=== PATIENT | female | born 1940 | race Caucasian/White ===

== ENCOUNTER → 2018-05-14 10:43 | Outpatient (CLI) | payer OTHER, SELFPAY ==
[2018-05-14 12:42] LABS: Alanine Aminotransferase 43 IU/L (9-52); Albumin 4.1 g/dL (3.5-5.0); Albumin Globulin Ratio 1.2 (1.0-2.8); Alkaline Phosphatase 103 U/L (38-126); Aspartate Aminotransferase 39 IU/L (14-36); BUN Creatinine Ratio 17.8 (6-22); Bilirubin Total 0.8 mg/dL (0.2-1.3); Blood Urea Nitrogen 16 mg/dL (7-17); Calcium 9.5 mg/dL (8.4-10.2); Carbon Dioxide 32 mmol/L (22-32); Chloride 103 mmol/L (98-107); Cholesterol 116 mg/dL (140-199); Estimated Glomerular Filt Rate > 60.0 mL/min (>60); Globulin 3.3 g/dL (1.7-4.1); Glucose 101 mg/dL (80-110); HDL Cholesterol 49 mg/dL (40-60); HEMOLYSIS < 15 (0-50); LDL Cholesterol Calculated 54 mg/dL (<100); Sodium 142 mmol/L (137-145); Total Protein 7.4 g/dL (6.3-8.2); Triglycerides 67 mg/dL (35-150)
== END ==
PROVIDERS: Family Provider Family Medicine; PCP Family Medicine; Visit Provider Internal Medicine Cardiovascular Disease
DX: I25.5 Ischemic cardiomyopathy (principal); I47.2 Ventricular tachycardia; I10 Essential (primary) hypertension; E78.00 Pure hypercholesterolemia, unspecified; Z95.810 Presence of automatic (implantable) cardiac defibrillator
CPT/HCPCS: 36415; 80053; 80061

== ENCOUNTER → 2019-05-06 10:28 | Outpatient (CLI) | payer OTHER, SELFPAY ==
[2019-05-06 12:06] LABS: Alanine Aminotransferase 31 IU/L (9-52); Albumin 4.1 g/dL (3.5-5.0); Albumin Globulin Ratio 1.2 (1.0-2.8); Alkaline Phosphatase 109 U/L (38-126); Aspartate Aminotransferase 33 IU/L (14-36); Bilirubin Total 0.9 mg/dL (0.2-1.3); Blood Urea Nitrogen 18 mg/dL (7-17); Calcium 9.7 mg/dL (8.4-10.2); Carbon Dioxide 32 mmol/L (22-32); Chloride 103 mmol/L (98-107); Cholesterol 122 mg/dL (140-199); Estimated Glomerular Filt Rate > 60.0 mL/min (>60); Globulin 3.3 g/dL (1.7-4.1); Glucose 105 mg/dL (80-110); HDL Cholesterol 55 mg/dL (40-60); HEMOLYSIS < 15 (0-50); LDL Cholesterol Calculated 50 mg/dL (<100); Potassium 5.1 mmol/L (3.4-5.1); Sodium 140 mmol/L (137-145); Total Protein 7.4 g/dL (6.3-8.2); Triglycerides 87 mg/dL (35-150)
== END ==
PROVIDERS: Family Provider Student in an Organized Health Care Education/Training Program; PCP Student in an Organized Health Care Education/Training Program; Visit Provider Internal Medicine Cardiovascular Disease
DX: I25.10 Atherosclerotic heart disease of native coronary artery without angina pectoris (principal); I25.5 Ischemic cardiomyopathy; I47.2 Ventricular tachycardia; I34.0 Nonrheumatic mitral (valve) insufficiency; Z95.810 Presence of automatic (implantable) cardiac defibrillator; Z86.79 Personal history of other diseases of the circulatory system
CPT/HCPCS: 36415; 80053; 80061

== ENCOUNTER → 2019-12-09 09:27 | Outpatient (CLI) | payer MEDICARE, OTHER, SELFPAY | PROVIDERS: Family Provider Student in an Organized Health Care Education/Training Program; PCP Student in an Organized Health Care Education/Training Program; Referring Provider Student in an Organized Health Care Education/Training Program; Visit Provider Student in an Organized Health Care Education/Training Program | DX: M85.852 Other specified disorders of bone density and structure, left thigh (principal); Z78.0 Asymptomatic menopausal state; E07.9 Disorder of thyroid, unspecified; Z91.89 Other specified personal risk factors, not elsewhere classified | CPT/HCPCS: 77080 ==

== ENCOUNTER → 2020-05-31 11:59 | Outpatient (CLI) | payer MEDICARE, OTHER, SELFPAY ==
[2020-05-31 16:31] LABS: Alanine Aminotransferase 24 IU/L (<35); Albumin Globulin Ratio 1.2 (1.0-2.8); Alkaline Phosphatase 114 U/L (38-126); Aspartate Aminotransferase 32 IU/L (14-36); BUN Creatinine Ratio 17.7 (6-22); Bilirubin Total 0.9 mg/dL (0.2-1.3); Blood Urea Nitrogen 17 mg/dL (7-17); Calcium 9.6 mg/dL (8.4-10.2); Carbon Dioxide 27 mmol/L (22-32); Chloride 106 mmol/L (98-107); Cholesterol 115 mg/dL (140-199); Estimated Glomerular Filt Rate 55.8 mL/min (>60); Globulin 3.3 g/dL (1.7-4.1); Glucose 95 mg/dL (80-110); HDL Cholesterol 52 mg/dL (40-60); HEMOLYSIS < 15 (0-50); LDL Cholesterol Calculated 45 mg/dL (<100); Potassium 4.9 mmol/L (3.4-5.1); Sodium 139 mmol/L (137-145); Total Protein 7.3 g/dL (6.3-8.2); Triglycerides 92 mg/dL (35-150)
== END ==
PROVIDERS: Family Provider Student in an Organized Health Care Education/Training Program; PCP Student in an Organized Health Care Education/Training Program; Referring Provider Internal Medicine Cardiovascular Disease; Visit Provider Internal Medicine Cardiovascular Disease
DX: I25.10 Atherosclerotic heart disease of native coronary artery without angina pectoris (principal); I25.5 Ischemic cardiomyopathy
CPT/HCPCS: 36415; 80053; 80061

== ENCOUNTER → 2021-02-21 14:08 | Outpatient (CLI) | payer MEDICARE, OTHER, SELFPAY ==
[2021-02-21 16:08] LABS: BUN Creatinine Ratio 23.3 (6-22); Blood Urea Nitrogen 20 mg/dL (7-17); Carbon Dioxide 28 mmol/L (22-32); Chloride 106 mmol/L (98-107); Estimated Glomerular Filt Rate > 60.0 mL/min (>60); Glucose 106 mg/dL (80-110); HEMOLYSIS < 15 (0-50); Potassium 5.1 mmol/L (3.4-5.1); Sodium 141 mmol/L (137-145)
[2021-02-21 17:23] LABS: TSH w/ Reflex to FT4 3.11 uIU/mL (0.47-4.68)
== END ==
PROVIDERS: Family Provider Student in an Organized Health Care Education/Training Program; PCP Student in an Organized Health Care Education/Training Program; Referring Provider Student in an Organized Health Care Education/Training Program; Visit Provider Student in an Organized Health Care Education/Training Program
DX: I10 Essential (primary) hypertension (principal); E03.9 Hypothyroidism, unspecified
CPT/HCPCS: 36415; 80048; 84443

== ENCOUNTER → 2021-05-23 10:44 | Outpatient (CLI) | payer MEDICARE, OTHER, SELFPAY ==
[2021-05-23 12:56] LABS: Alanine Aminotransferase 25 IU/L (<35); Albumin Globulin Ratio 1.2 (1.0-2.8); Alkaline Phosphatase 113 U/L (38-126); Aspartate Aminotransferase 34 IU/L (14-36); BUN Creatinine Ratio 19.8 (6-22); Bilirubin Total 0.7 mg/dL (0.2-1.3); Blood Urea Nitrogen 19 mg/dL (7-17); Calcium 10.1 mg/dL (8.4-10.2); Carbon Dioxide 30 mmol/L (22-32); Chloride 105 mmol/L (98-107); Estimated Glomerular Filt Rate 55.6 mL/min (>60); Globulin 3.3 g/dL (1.7-4.1); Glucose 103 mg/dL (80-110); HEMOLYSIS < 15 (0-50); Potassium 4.8 mmol/L (3.4-5.1); Sodium 141 mmol/L (137-145); Total Protein 7.3 g/dL (6.3-8.2)
== END ==
PROVIDERS: Family Provider Student in an Organized Health Care Education/Training Program; PCP Student in an Organized Health Care Education/Training Program; Referring Provider Internal Medicine Cardiovascular Disease; Visit Provider Internal Medicine Cardiovascular Disease
DX: I25.10 Atherosclerotic heart disease of native coronary artery without angina pectoris (principal)
CPT/HCPCS: 36415; 80053

== ENCOUNTER → 2022-07-02 10:00 | Outpatient (CLI) | payer MEDICARE, OTHER, SELFPAY ==
[2022-07-02 11:26] LABS: Alanine Aminotransferase 20 IU/L (<35); Albumin 4.1 g/dL (3.5-5.0); Albumin Globulin Ratio 1.2 (1.0-2.8); Alkaline Phosphatase 123 U/L (38-126); Aspartate Aminotransferase 29 IU/L (14-36); BUN Creatinine Ratio 21.3 (6-22); Bilirubin Total 0.6 mg/dL (0.2-1.3); Blood Urea Nitrogen 20 mg/dL (7-17); Calcium 9.5 mg/dL (8.4-10.2); Carbon Dioxide 26 mmol/L (22-32); Chloride 105 mmol/L (98-107); Cholesterol 124 mg/dL (140-199); Estimated Glomerular Filt Rate > 60 mL/min (>60); Globulin 3.4 g/dL (1.7-4.1); Glucose 103 mg/dL (80-110); HDL Cholesterol 48 mg/dL (40-60); HEMOLYSIS < 15 (0-50); LDL Cholesterol Calculated 49 mg/dL (<100); Potassium 4.7 mmol/L (3.4-5.1); Sodium 141 mmol/L (137-145); Total Protein 7.5 g/dL (6.3-8.2); Triglycerides 137 mg/dL (35-150)
[2022-07-02 11:47] LABS: Thyroid Stimulating Hormone 4.57 uIU/mL (0.47-4.68)
== END ==
PROVIDERS: Family Provider Student in an Organized Health Care Education/Training Program; PCP Student in an Organized Health Care Education/Training Program; Referring Provider Internal Medicine Cardiovascular Disease; Visit Provider Internal Medicine Cardiovascular Disease
DX: E78.5 Hyperlipidemia, unspecified (principal); E03.9 Hypothyroidism, unspecified
CPT/HCPCS: 36415; 80053; 80061; 84443

== ENCOUNTER → 2022-11-04 12:35 | Outpatient (CLI) | payer MEDICARE, OTHER, SELFPAY ==
[2022-11-04 13:21] LABS: Add Manual Diff / Slide Review NO; Basophils Absolute Auto 0 /uL (0-100); Basophils Percent Auto 0.3 % (0-2); Eosinophils Absolute Auto 0 /uL (0-450); Eosinophils Percent Auto 0.5 % (2-4); Hematocrit 33.3 % (36-46); Hemoglobin 10.8 g/dL (12.0-16.0); Lymphocytes Absolute Auto 1400 /uL (1100-4500); Lymphocytes Percent Auto 13.2 % (25-40); Mean Corpuscular HGB Conc 32.5 % (30-36); Mean Corpuscular Hemoglobin 26.6 PG (26-34); Mean Corpuscular Volume 81.9 fL (80-100); Monocytes Absolute Auto 1100 /uL (0-900); Monocytes Percent Auto 10.8 % (3-14); Neutrophils Absolute Auto 7700 /uL (1500-7000); Neutrophils Percent Auto 75.2 % (50-75); Platelet Count 372 X10^3/uL (150-400); Red Blood Cell Count 4.07 X10^6/uL (4.0-5.2); Red Cell Distribution Width 14.8 % (11.6-14.8); White Blood Cell Count 10.3 X10^3/uL (4.5-11.0)
[2022-11-04 13:42] LABS: HEMOLYSIS < 15 (0-50); Iron 28 ug/dL (37-170)
[2022-11-04 13:53] LABS: Percent Iron Saturation 13 % (15-50); Total Iron Binding Capacity 223 ug/dL (265-497)
[2022-11-04 13:59] LABS: Transferrin 165 mg/dL (206-381)
[2022-11-04 14:13] LABS: Thyroid Stimulating Hormone 4.17 uIU/mL (0.47-4.68)
[2022-11-04 14:17] LABS: Ferritin 240 ng/mL (11-264)
[2022-11-04 14:48] LABS: Folate 6.9 ng/mL (2.76-20.0); Vitamin B12 489 pg/mL (239-931)
== END ==
PROVIDERS: Family Provider Student in an Organized Health Care Education/Training Program; PCP Student in an Organized Health Care Education/Training Program; Referring Provider Physician Assistant Medical; Visit Provider Physician Assistant Medical
DX: D64.9 Anemia, unspecified (principal); E03.9 Hypothyroidism, unspecified; I50.9 Heart failure, unspecified
CPT/HCPCS: 36415; 82607; 82728; 82746; 83540; 83550; 84443; 85025

== ENCOUNTER → 2023-01-20 11:26 | Outpatient (CLI) | payer MEDICARE, OTHER, SELFPAY ==
[2023-01-20 12:52] LABS: Add Manual Diff / Slide Review NO; Basophils Absolute Auto 0 /uL (0-100); Basophils Percent Auto 0.2 % (0-2); Eosinophils Absolute Auto 100 /uL (0-450); Eosinophils Percent Auto 1.2 % (2-4); Hematocrit 32.4 % (36-46); Hemoglobin 10.6 g/dL (12.0-16.0); Lymphocytes Absolute Auto 1400 /uL (1100-4500); Lymphocytes Percent Auto 16.6 % (25-40); Mean Corpuscular HGB Conc 32.6 % (30-36); Mean Corpuscular Hemoglobin 26.4 PG (26-34); Mean Corpuscular Volume 80.9 fL (80-100); Monocytes Absolute Auto 800 /uL (0-900); Monocytes Percent Auto 9.3 % (3-14); Neutrophils Absolute Auto 6100 /uL (1500-7000); Neutrophils Percent Auto 72.7 % (50-75); Platelet Count 353 X10^3/uL (150-400); Red Cell Distribution Width 19.3 % (11.6-14.8); White Blood Cell Count 8.4 X10^3/uL (4.5-11.0)
[2023-01-20 13:03] LABS: Reticulocyte Count, Percent 1.3 % (1.1-2.6)
[2023-01-20 13:12] LABS: Alanine Aminotransferase 15 IU/L (<35); Albumin 3.8 g/dL (3.5-5.0); Alkaline Phosphatase 101 U/L (38-126); Aspartate Aminotransferase 21 IU/L (14-36); BUN Creatinine Ratio 21.3 (6-22); Bilirubin Total 0.5 mg/dL (0.2-1.3); Blood Urea Nitrogen 17 mg/dL (7-17); Calcium 9.4 mg/dL (8.4-10.2); Carbon Dioxide 30 mmol/L (22-32); Chloride 100 mmol/L (98-107); Cholesterol 103 mg/dL (140-199); Estimated Glomerular Filt Rate > 60 mL/min (>60); Glucose 107 mg/dL (80-110); HDL Cholesterol 35 mg/dL (40-60); HEMOLYSIS < 15 (0-50); LDL Cholesterol Calculated 52 mg/dL (<100); Magnesium 2.2 mg/dL (1.6-2.3); Potassium 4.7 mmol/L (3.4-5.1); Sodium 136 mmol/L (137-145); Total Protein 7.8 g/dL (6.3-8.2); Triglycerides 80 mg/dL (35-150)
== END ==
PROVIDERS: Family Provider Student in an Organized Health Care Education/Training Program; PCP Student in an Organized Health Care Education/Training Program; Referring Provider Internal Medicine Cardiovascular Disease; Visit Provider Internal Medicine Cardiovascular Disease
DX: E78.5 Hyperlipidemia, unspecified (principal); I25.5 Ischemic cardiomyopathy; I47.20 Ventricular tachycardia, unspecified; D50.8 Other iron deficiency anemias; R42 Dizziness and giddiness; I10 Essential (primary) hypertension
CPT/HCPCS: 36415; 80053; 80061; 83735; 85025; 85045

== ENCOUNTER 2023-03-13 12:23 | Day surgery (SDC) | payer MEDICARE, OTHER, SELFPAY ==
[2023-03-13] VITALS (7 sets, daily range): BP systolic 124–173; BP diastolic 53–84; PULSE 81–85; RESP 14–19; TEMP 36.1–36.6; O2SAT 95–100; BMI 21.4
[2023-03-13] MEDS: LACTATED RINGERS 1,000 ML 42 ML IV (14:05)
--- NOTE | 2023-03-13 14:57 | PM.HP.1 ---
History of Present Illness History of Present Illness Date Patient Seen: 03/13/23 Time Patient Seen: 14:57 Chief complaint: SDC Narrative: An is here for her EGD and colonoscopy for mild anemia. Please see the office note from January for additional details. [facility] Medical History Acquired hypothyroidism (03/07/16) Anxiety (03/07/16) Chicken pox Coronary artery disease Do not resuscitate Essential hypertension History of malignant neoplasm of colon (06/08/15) Hx of ventricular fibrillation Measles Mixed hyperlipidemia Osteopenia Systolic CHF, chronic Surgical History AICD (automatic cardioverter/defibrillator) present Anesthesia History of ankle surgery S/P partial colectomy Family History Father Congestive heart failure Mother Alzheimer disease Social History household members: spouse Smoking Status: Never smoker alcohol intake: never Meds Home Medications and Allergies Home Medications Medication Instructions Recorded Confirmed Type aspirin 81 mg tablet,delayed 81 mg QDAY ##0 10/23/11 03/13/23 History release lisinopril 5 mg tablet 5 mg PO BID #180 tabs 06/27/16 03/13/23 Rx atorvastatin 40 mg tablet 40 mg PO DAILY 12/03/19 03/13/23 History carvedilol 6.25 mg tablet 6.25 mg PO BID 12/03/19 03/13/23 History levothyroxine 50 mcg tablet 50 mcg PO QDAY #90 tabs 03/01/22 03/13/23 Rx (Synthroid) calcium citrate-vitamin D3 1 tab PO DAILY 01/27/23 03/13/23 History cyanocobalamin (vitamin B-12) 1,000 mcg PO DAILY 01/27/23 03/13/23 History 1,000 mcg capsule ferrous fumarate 324 mg (106 mg 324 mg PO DAILY anemia 01/27/23 03/13/23 History iron) tablet spironolactone 25 mg tablet 12.5 mg PO DAILY 01/27/23 03/13/23 History Allergies Allergy/AdvReac Type Severity Reaction Status Date / Time No Known Drug Allergies Allergy Verified 03/13/23 13:45 Exam Vital Signs (past 8 hours): - 03/13/23 13:50 Temperature 97.2 F L Pulse Rate 81 Respiratory Rate 19 Blood Pressure 173/78 H Pulse Oximetry 100 Oxygen Delivery Method Room Air Oxygen Delivery Method Room Air Const General: No acute distress Assessment & Plan Assessment and plan (1) Anemia, unspecified: Qualifiers: Anemia type: iron deficiency Iron deficiency anemia type: unspecified iron deficiency Qualified Code(s): D50.9 - Iron deficiency anemia, unspecified Status: Acute Plan We reviewed the risks and benefits and she would like to proceed with her EGD and colonoscopy.
--- NOTE | 2023-03-13 15:31 | P.OP.EGD&C_ITS ---
Operative Date/Time/Diagnoses Date of procedure: 03/13/23 Time of procedure: 15:31 Pre-op diagnosis: Anemia Post-op diagnosis: same Procedure & Clinicians Study performed: EGD and colonoscopy Same procedure as scheduled: Yes Surgeon: Josias Morales Procedure Notes Procedure in detail: Surgeon: Josias Morales MD Anesthesia: Ang Nur MD Procedure in detail: A timeout was performed. A bite blocked was placed and monitors were attached to the patient. The patient was positioned in a left lateral decubitus position. Sedation was administered by Dr. Nur. Once the patient was sedated the endoscope was inserted through the bite block and passed through the esophagus and stomach and into the duodenum. No abnormalities were seen. We then withdrew the scope into the stomach. No other abnormalities were seen. The endoscope was retroflexed and no hiatal hernia was seen. The e ndoscope was straightned and withdrawn into the esophagus. No abnormalities were seen in the esophagus. Findings: Normal EGD Next we repositioned the patient for a colonoscopy. A digital rectal exam was performed and was normal. The colonoscope was inserted and advanced to the cecum. The appendiceal orifice was identified and photographed. The scope was slowly withdrawn over greater than 6 minutes. No abnormalities were seen. The anastomosis was seen in the upper rectum. The scope was retroflexed in the rectum and no abnormalities were seen. Findings: Normal anastomosis, normal colon EBL: 0 Scope withdrawal time: 8 minutes Sedation minutes: 17 minutes Post-procedure Disposition: PACU
== END 2023-03-13 16:20 | disposition home or self-care (01) ==
PROVIDERS: Family Provider Student in an Organized Health Care Education/Training Program; PCP Internal Medicine; Referring Provider Surgery; Visit Provider Surgery
PROC: 0DJ08ZZ Inspection of Upper Intestinal Tract, Via Natural or Artificial Opening Endoscopic (ICD-10-PCS; CPT 43235; principal; 2023-03-13 13:45)
PROC: 0DJD8ZZ Inspection of Lower Intestinal Tract, Via Natural or Artificial Opening Endoscopic (ICD-10-PCS; CPT 45378; 2023-03-13 13:45)
DX: D50.9 Iron deficiency anemia, unspecified (principal)
CPT/HCPCS: 45378; 43235; J2704; J3010

== ENCOUNTER → 2023-05-15 10:27 | Outpatient (CLI) | payer MEDICARE, OTHER, SELFPAY ==
--- NOTE | 2023-05-15 | DI.NM.S_ITS ---
PROCEDURE: NM TONE PERF SPECT R&S PHARM Rest and pharmacological stress myocardial perfusion SPECT with gated imaging and ejection fraction RADIOPHARMACEUTICAL: 12.6 mCi Tc-99m tetrafosmin IV at rest and 25.2 mCi Tc-99m tetrafosmin IV at peak effect of pharmacological stress. [id number] was performed. INDICATIONS: Ventricular tachycardia, unspecified TECHNIQUE: Radiopharmaceutical was injected at peak stress test, and also at rest. SPECT images were obtained. SPECT myocardial perfusion images were displayed in short axis, horizontal long axis, and vertical long axis views. Gated images were reviewed using [employer] software. COMPARISON: None. CARDIAC STRESS: A pharmacologic stress test was performed under the supervision of an attending staff, using an infusion of lexiscan 0.4mg IV X1. Hemodynamic data: There is normal blood pressure and heart rate response to pharmacologic stress. Symptoms: The patient denied anginal chest pain. Aminophylline: none EKG: Resting ECG showed sinus rhythm with LBBB. Non-diagnostic ECG from ischemia standpoint with lexiscan due to baseline LBBB. Frequent PVCs during recovery. FINDINGS: Raw data: There is good myocardial uptake of radiotracer. No significant motion artifacts. Zrjj-kc-[id number] ratio is 12.6 (normal is less than 0.38 for tetrafosmin tracer). Left ventricle function: Gated images demonstrate normal left ventricular wall thickening. No segmental wall motion abnormalities. No transient ischemic dilation; TID is 25.2 (normal less than 1.3). Left ventricle post stress end diastolic volume is 120 mL. Left ventricle stress ejection fraction is 66%; normal range is above 45%. Myocardial perfusion: There is mildly intense distal anterior wall defect at rest that improves with stress and further improves with prone imaging, suggesting probable breast attenuation artifact but old small non-transmural infarction can't be excluded. No ischemia. SSS 0. IMPRESSION: Low risk, probably normal pharmaceutical nuclear stress from inducible ischemia standpoint. 1) There is mildly intense distal anterior wall defect at rest that improves with stress and further improves with prone imaging, suggesting probable breast attenuation artifact but old small non-transmural infarction can't be excluded. No ischemia. SSS 0. 2) Normal left ventricular size, wall motion, and systolic function (EF post stress 66%). 3) Non-diagnostic ST segments with lexiscan due to baseline LBBB 4) Frequent PVCs with lexiscan. 5) No angina during the study. 6) No prior nuclear stress test available for comparison. Dictated by: Lalit Contreras MD on 05/16/2023 at 13:12 Approved by: Lalit Contreras MD on 05/16/2023 at 13:17
--- NOTE | 2023-05-15 | DI.ECHO.S_ITS ---
[place] [facility]---------+ [facility] +---------+ : : [address] : : : : [id number] : : : : Phone: [phone]+ Echocardiogram Report + + :Name: ДМИТРИЙ RANKIN Study Date: 05/15/2023 Height: 64 in : :[facility] ReadingLocation: Weight: 125 lb : : Gender: Female BSA: 1.6 m2 : :: 1940 Age: 82 yrs BP: 153/77 mmHg: :Reason For Study: VENTRICULAR TACHYCARDIA : :Ordering Physician: FAY : :MERLIN Performed By: Dara Stone : :Referring: MERLIN APONTE : + + Interpretation Summary The left ventricle is normal in size. The ejection fraction is estimated to be 40-45%. No significant change in LVEF from the previous study. The right ventricle is normal in size and function. There is a pacemaker lead in the right ventricle. There is moderate mitral regurgitation. Previously mild MR. There is mild to moderate tricuspid regurgitation. No significant change from the previous study. The right ventricular systolic pressure is estimated to be at least 33 mmHg based on an estimated right atrial pressure of 3 mm Hg. Procedure: A two-dimensional transthoracic echocardiogram with color flow and Doppler was performed. The study quality was technically adequate. Comparison is made with the echocardiogram of 07/22/2011. The heart rate ranged between 72-80 bpm during the study. The patient was in normal sinus rhythm during the exam. Left Ventricle: The left ventricle is normal in size. Proximal septal thickening is noted. There is no thrombus. The ejection fraction is estimated to be 40-45%. There is septal wall hypokinesis. There is basal inferior wall hypokinesis. MV E/A: 1.1 Med Peak E' Drew: 6.7 cm/sec E/E' med: 14.1. Right Ventricle: There is a pacemaker lead in the right ventricle. The right ventricle is normal in size and function. Atria: The left atrium is severely dilated. There has been no significant change since the previous study. The right atrium is moderately dilated. There is no Doppler evidence for an interatrial shunt. Mitral Valve: The mitral valve leaflets appear mildly thickened, but open well. There is mild mitral annular calcification. There is moderate mitral regurgitation. The mitral regurgitant jet is eccentrically directed. Aortic Valve: The aortic valve is trileaflet. The aortic valve opens well. There is no aortic valve stenosis. There is trace aortic regurgitation. Tricuspid Valve: The tricuspid valve is normal. There is mild to moderate tricuspid regurgitation. The right ventricular systolic pressure is estimated to be at least 33 mmHg based on an estimated right atrial pressure of 3 mm Hg. Pulmonic Valve: The pulmonic valve is not well seen, but is grossly normal. There is trace pulmonic regurgitation. Great Vessels: The aortic root is normal size. The dimensions of the ascending aorta are normal. The IVC is of normal diameter and collapses greater than 50% with a sniff. This suggests a low right atrial pressure of 3 mm Hg. Pericardium/ Pleura There is no pericardial effusion. There is no pleural effusion. MMode/2D Measurements & Calculations LVIDd: 4.5 cm LVOT diam: 2.1 cm LVIDs: 3.4 cm Ao root diam: 2.8 cm FS: 24.0 % asc Aorta Diam: 3.3 cm IVSd: 1.0 cm Ao Arch Diam (Prox Trans): 2.1 cm LVPWd: 0.89 cm LV cook. diameter/BSA (cm/m^2): 2.8 LV sys. diameter/BSA (cm/m^2): 2.1 LA A2 area: 20.2 cm2 RA long axis: 5.1 cm LA A4 area: 20.9 cm2 RA area: 20.0 cm2 LA length (vol): 5.3 cm RA vol: 67.1 ml LA vol: 67.2 ml RA : 41.9 ml/m2 LA vol index: 42.0 ml/m2 IVC diam: 0.86 cm RVD1 (basal): 3.9 cm RVD2 (mid): 2.8 cm TAPSE: 2.3 cm Doppler Measurements & Calculations Ao V2 max: 122.8 cm/sec LVOT Max Drew: 65.3 cm/sec Ao V2 mean: 84.9 cm/sec LV V1 max P.7 mmHg Ao max P.0 mmHg LV V1 VTI: 13.4 cm Ao mean P.2 mmHg LAW(I,D): 1.7 cm2 Ao V2 VTI: 27.5 cm LAW(V,D): 1.8 cm2 sev ratio: 0.49 LAW indexed to BSA (cm^2/m^2): 1.0 MV E max drew: 94.3 cm/sec TR max drew: 276.6 cm/sec MV A max drew: 84.7 cm/sec TR max P.6 mmHg MV E/A: 1.1 PA pr(Accel): 43.0 mmHg Med Peak E' Drew: 6.7 cm/sec E/E' med: 14.1 Lat Peak E' Drew: 9.8 cm/sec E/E' lat: 9.6 E/e' average: 11.9 MV dec time: 0.16 sec SV(LVOT): 45.8 ml Reading Physician:01:42 PM
== END ==
PROVIDERS: Family Provider Student in an Organized Health Care Education/Training Program; PCP Internal Medicine; Referring Provider Internal Medicine Cardiovascular Disease; Visit Provider Internal Medicine Cardiovascular Disease
DX: I08.1 Rheumatic disorders of both mitral and tricuspid valves (principal); I47.20 Ventricular tachycardia, unspecified; I25.5 Ischemic cardiomyopathy; Z95.0 Presence of cardiac pacemaker
CPT/HCPCS: 78452; 93017; 93306; A9502; J2785

== ENCOUNTER → 2023-07-29 11:10 | Outpatient (CLI) | payer MEDICARE, OTHER, SELFPAY ==
[2023-07-29 12:23] LABS: BUN Creatinine Ratio 22.9 (6-22); Blood Urea Nitrogen 22 mg/dL (7-17); Calcium 9.8 mg/dL (8.4-10.2); Carbon Dioxide 29 mmol/L (22-32); Chloride 103 mmol/L (98-107); Estimated Glomerular Filt Rate 58 mL/min (>60); Glucose 111 mg/dL (80-110); HEMOLYSIS < 15 (0-50); Potassium 4.9 mmol/L (3.4-5.1); Sodium 140 mmol/L (137-145)
== END ==
PROVIDERS: Family Provider Student in an Organized Health Care Education/Training Program; PCP Internal Medicine; Referring Provider Internal Medicine Cardiovascular Disease; Visit Provider Internal Medicine Cardiovascular Disease
DX: I25.5 Ischemic cardiomyopathy (principal); I10 Essential (primary) hypertension
CPT/HCPCS: 36415; 80048

== ENCOUNTER → 2024-08-18 11:34 | Outpatient (CLI) | payer MEDICARE, OTHER, SELFPAY ==
[2024-08-18 12:30] LABS: Add Manual Diff / Slide Review NO; Basophils Absolute Auto 0 /uL (0-100); Basophils Percent Auto 0.2 % (0-2); Eosinophils Absolute Auto 100 /uL (0-450); Eosinophils Percent Auto 1.4 % (2-4); Hematocrit 34.5 % (36-46); Hemoglobin 11.5 g/dL (12.0-16.0); Lymphocytes Absolute Auto 1800 /uL (1100-4500); Lymphocytes Percent Auto 19.4 % (25-40); Mean Corpuscular HGB Conc 33.2 % (30-36); Mean Corpuscular Hemoglobin 28.8 PG (26-34); Mean Corpuscular Volume 86.7 fL (80-100); Monocytes Absolute Auto 900 /uL (0-900); Monocytes Percent Auto 9.3 % (3-14); Neutrophils Absolute Auto 6400 /uL (1500-7000); Neutrophils Percent Auto 69.7 % (50-75); Platelet Count 326 X10^3/uL (150-400); Red Blood Cell Count 3.98 X10^6/uL (4.0-5.2); Red Cell Distribution Width 15.3 % (11.6-14.8); White Blood Cell Count 9.1 X10^3/uL (4.5-11.0)
[2024-08-18 13:04] LABS: Alanine Aminotransferase 17 IU/L (<35); Albumin Globulin Ratio 1.3 (1.0-2.8); Alkaline Phosphatase 106 U/L (38-126); Aspartate Aminotransferase 30 IU/L (14-36); BUN Creatinine Ratio 25.7 (6-22); Bilirubin Total 0.5 mg/dL (0.2-1.3); Blood Urea Nitrogen 27 mg/dL (7-17); Calcium 9.3 mg/dL (8.4-10.2); Carbon Dioxide 27 mmol/L (22-32); Chloride 105 mmol/L (98-107); Estimated Glomerular Filt Rate 52 mL/min (>60); Globulin 3.2 g/dL (1.7-4.1); Glucose 101 mg/dL (80-110); HEMOLYSIS < 15 (0-50); Magnesium 2.1 mg/dL (1.6-2.3); Potassium 5.3 mmol/L (3.4-5.1); Sodium 137 mmol/L (137-145); Total Protein 7.2 g/dL (6.3-8.2)
[2024-08-18 13:35] LABS: Thyroid Stimulating Hormone 3.76 uIU/mL (0.47-4.68)
== END ==
PROVIDERS: Family Provider Student in an Organized Health Care Education/Training Program; PCP Internal Medicine; Referring Provider Internal Medicine Cardiovascular Disease; Visit Provider Internal Medicine Cardiovascular Disease
DX: I10 Essential (primary) hypertension (principal)
CPT/HCPCS: 36415; 80053; 83735; 84443; 85025

== ENCOUNTER → 2024-08-25 13:46 | Outpatient (CLI) | payer MEDICARE, OTHER, SELFPAY ==
[2024-08-25 14:37] LABS: BUN Creatinine Ratio 25.8 (6-22); Blood Urea Nitrogen 31 mg/dL (7-17); Calcium 8.9 mg/dL (8.4-10.2); Carbon Dioxide 27 mmol/L (22-32); Chloride 107 mmol/L (98-107); Estimated Glomerular Filt Rate 44 mL/min (>60); Glucose 156 mg/dL (80-110); HEMOLYSIS < 15 (0-50); Potassium 4.5 mmol/L (3.4-5.1); Sodium 138 mmol/L (137-145)
== END ==
PROVIDERS: Family Provider Student in an Organized Health Care Education/Training Program; PCP Internal Medicine; Referring Provider Internal Medicine Cardiovascular Disease; Visit Provider Internal Medicine Cardiovascular Disease
DX: I10 Essential (primary) hypertension (principal)
CPT/HCPCS: 36415; 80048

== ENCOUNTER → 2024-12-21 12:16 | Outpatient (CLI) | payer MEDICARE, OTHER, SELFPAY ==
[2024-12-21 13:09] LABS: Hematocrit 36.5 % (36-46); Mean Corpuscular HGB Conc 32.9 % (30-36); Mean Corpuscular Hemoglobin 28.1 PG (26-34); Mean Corpuscular Volume 85.2 fL (80-100); Platelet Count 313 X10^3/uL (150-400); Red Blood Cell Count 4.28 X10^6/uL (4.0-5.2); Red Cell Distribution Width 15.3 % (11.6-14.8); White Blood Cell Count 8.1 X10^3/uL (4.5-11.0)
[2024-12-21 13:53] LABS: BUN Creatinine Ratio 22.6 (6-22); Blood Urea Nitrogen 24 mg/dL (7-17); Calcium 9.3 mg/dL (8.4-10.2); Carbon Dioxide 27 mmol/L (22-32); Chloride 105 mmol/L (98-107); Cholesterol 115 mg/dL (140-199); Estimated Glomerular Filt Rate 51 mL/min (>60); Glucose 108 mg/dL (80-110); HDL Cholesterol 45 mg/dL (40-60); HEMOLYSIS < 15 (0-50); LDL Cholesterol Calculated 50 mg/dL (<100); Potassium 4.8 mmol/L (3.4-5.1); Sodium 140 mmol/L (137-145); Triglycerides 99 mg/dL (35-150)
[2024-12-21 14:24] LABS: TSH w/ Reflex to FT4 3.95 uIU/mL (0.47-4.68)
== END ==
PROVIDERS: Family Provider Student in an Organized Health Care Education/Training Program; PCP Internal Medicine; Referring Provider Internal Medicine; Visit Provider Internal Medicine
DX: E03.9 Hypothyroidism, unspecified (principal); E78.2 Mixed hyperlipidemia; R79.89 Other specified abnormal findings of blood chemistry
CPT/HCPCS: 36415; 80048; 80061; 84443; 85027

== ENCOUNTER → 2025-08-02 12:05 | Outpatient (CLI) | payer MEDICARE, OTHER, SELFPAY ==
[2025-08-02 14:20] LABS: Blood Urea Nitrogen 25 mg/dL (7-17); Calcium 9.3 mg/dL (8.4-10.2); Carbon Dioxide 27 mmol/L (22-32); Chloride 102 mmol/L (98-107); Estimated Glomerular Filt Rate 46 mL/min (>60); Glucose 162 mg/dL (70-99); HEMOLYSIS < 15 (0-50); Potassium 4.2 mmol/L (3.4-5.1); Sodium 138 mmol/L (137-145)
== END ==
PROVIDERS: PCP Internal Medicine; Referring Provider Internal Medicine Cardiovascular Disease; Visit Provider Internal Medicine Cardiovascular Disease
DX: I10 Essential (primary) hypertension (principal); I25.5 Ischemic cardiomyopathy
CPT/HCPCS: 36415; 80048